=== PATIENT | male | born 1955 | race Caucasian/White ===

== ENCOUNTER → 2016-08-09 | Outpatient (CLI) | payer BC ==
[2016-08-09 10:49] LABS: Blood Urea Nitrogen 16 mg/dL (9-20); Non-African American GFR(MDRD) >60 (>60 ml/min/1.73 sqM)
--- NOTE | 2016-08-09 13:02 | CT ---
CT urogram with and without contrast HISTORY: Gross hematuria Helical acquisition obtained through the kidneys before contrast as well as post intravenous contrast , 100 cc Omni 300 IV, CT performed through the abdomen and pelvis after appropriate delay, no oral co ntrast. Three-dimensional reconstructions performed on an alternate workstation. No comparisons There is a calculus present at the lower pole of the left kidney measuring approximately 1 cm in size . No evident ureteral calculus or hydronephrosis. Some periureteral soft tissue stranding, thickening of the ureteral wall greater on the left may be due to underlying infection or inflammatory change. No retroperitoneal adenopathy. No sizable renal or ureteral mass is evident. Minute hypodensity at th e upper pole of the left kidney measures only 3 mm and shows fat attenuation, may represent a small a ngiomyolipoma or cyst, similar-appearing lesion is present at the lower pole of the right kidney. The kidneys excrete contrast bilaterally. Ureters show normal course and caliber. Urinary bladder shows a thickened wall. The prostate is enlarged and shows associated calcifications. The adrenal glands are unremarkable. Suspect there is an oval calcification near the root of the mese ntery which could possibly represent partially thrombosed aneurysm measuring approximately 2 cm in gr eatest dimension. Extensive collateralization present, varices about the stomach. Focal metallic dens ity within the left splenic hilum may be postoperative. Fluid-filled loops of small bowel are extensi ve, difficult to exclude a component of enteritis. No ascites. Aorta shows normal caliber. Degenerati ve disc changes are present in the visualized spine, suspect underlying diffuse idiopathic skeletal h yperostosis change in the lower thoracic spine. IMPRESSION: Lower pole renal calculus on the left. 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 Possible underlying portal hypertension, extensive varices are suspected in the upper abdomen. There may be chronic bladder outlet obstruction. Additional findings above.
== END | disposition home or self-care (01) ==
LOC: RADCTMAIN 09:59
PROVIDERS: ATTEND Urology
DX: N20.0 Calculus of kidney (principal)
CPT/HCPCS: 82565; 84520; 74178; 36415; 74400; Q9967